=== PATIENT | female | born 1935 | race Caucasian/White ===

== ENCOUNTER 2018-10-16 21:02 | Inpatient (IN) | payer MEDICARE, BC ==
[~2018-10-16] VITALS: Ht 157.5 cm; Wt 78.0 kg
--- NOTE | 2018-10-16 21:32 | NUR ---
[id number] FROM HOME C/O WEAKNESS/DIZZINESS/PALPITATIONS X 1 HOUR. PATIENT STATES JUST FINISHED WEARING 14 DAY HOLTER MONITOR YESTERDAY. DENIES CP. AOX4, AMB, VSS, RR EVEN AND UNLABORED ON RA. SKIN INTACT, NO ACUTE DISTRESS NOTED. READY FOR EVAL.
[2018-10-16] MEDS ORDERED: IV NS 0.9% 500 ML BAG IV ONE (22:00)
--- NOTE | 2018-10-16 22:10 | NUR ---
FRIEND AT BEDSIDE. IV ACCESS ESTABLISHED. IVF INFUSING. WILL CONT TO MONITOR.
[2018-10-16 22:18] LABS: BASOPHILS # (AUTO) 0.1 /CMM (0.0-0.2); BASOPHILS % (AUTO) 0.9 % (0.0-2.0); EOSINOPHILS % (AUTO) 1.8 % (0.0-6.0); HEMATOCRIT 42 % (33-45); HEMOGLOBIN 14.2 g/dL (11.5-14.8); LYMPHOCYTES # (AUTO) 4.3 /CMM (0.8-4.8); LYMPHOCYTES % (AUTO) 47.6 % (20.0-44.0); MEAN CORPUSCULAR HGB CONC 34 g/dl (31.0-36.0); MEAN CORPUSCULAR VOLUME 91 fL (82-100); MONOCYTES # (AUTO) 0.8 /CMM (0.1-1.30); MONOCYTES % (AUTO) 8.4 % (2.0-12.0); NEUTROPHILS # (AUTO) 3.7 /CMM (1.8-8.9); NEUTROPHILS % (AUTO) 41.3 % (43.0-81.0); PLATELET COUNT (AUTO) 209 /CMM (150-450); RED BLOOD CELL COUNT(AUTO) 4.62 MIL/uL (4.0-5.2)
[2018-10-16 22:28] LABS: CALCIUM, SERUM 10.1 mg/dL (8.5-10.1); CARBON DIOXIDE 28 mmol/L (21-32); CHLORIDE 102 mmol/L (98-107); CREATININE 1.1 mg/dL (0.6-1.3); GLUCOSE 160 mg/dL (74-106); POTASSIUM 3.7 mmol/L (3.5-5.1); SODIUM SERUM 139 mmol/L (136-145); UREA NITROGEN, BLOOD 18 mg/dL (7-18)
[2018-10-16 22:35] LABS: ALANINE AMINOTRANSFERASE 36 U/L (12-78); ALBUMIN 3.9 g/dL (3.4-5.0); ALKALINE PHOSPHATASE 114 U/L (46-116); ASPARTATE AMINOTRANSFERASE 26 U/L (15-37); BILIRUBIN,TOTAL 0.3 mg/dL (0.2-1.0); LIPASE 171 U/L (73-393); TOTAL PROTEIN, SERUM 7.5 g/dL (6.4-8.2)
--- NOTE | 2018-10-16 23:05 | NUR ---
PT UP TO USE RESTROOM
[2018-10-17] VITALS (8 sets, daily range): BP systolic 115–147; BP diastolic 53–76
[2018-10-17] MEDS ORDERED: Z GUARD REMEDY 2 OZ OINT TP PRN (01:00)
[2018-10-17] MEDS ORDERED: ACETAMINOPHEN 325 MG TABLET PO PRN (01:00)
[2018-10-17] MEDS ORDERED: MAG HYDROX/AL HYDROX/SIMETH 30 ML UDC PO PRN (01:00)
[2018-10-17] MEDS ORDERED: HYDROCODONE/APAP 5/325MG 1 EACH TABLET PO PRN (01:00)
[2018-10-17] MEDS ORDERED: ONDANSETRON HCL/PF 4 MG/2 ML VIAL IVP PRN (01:00)
[2018-10-17] MEDS ORDERED: MAGNESIUM HYDROXIDE 30 ML UDC PO PRN (01:00)
--- NOTE | 2018-10-17 01:05 | NUR ---
REPORT GIVEN FOR CONTINUATION OF CARE.
--- NOTE | 2018-10-17 01:55 | NUR ---
PT TRANSFERED TO VIA [facility]
--- NOTE | 2018-10-17 02:00 | NUR ---
PT RECEIVED FROM ER VIA FAMILY DAKOTAH AT BEDSIDE, PT AWAKE, ALERT , ORIENTED TIMES 3, DENIES PAIN AT THIS TIME, ON ROOM AIR. NO SOB NOTED, PT DENIES ANY PALPITATIONS AT THIS TIME, SKIN INTACT. PT AMBULATING TO THE BATHROOM.
[2018-10-17 07:21] LABS: BASOPHILS % (AUTO) 0.5 % (0.0-2.0); EOSINOPHILS % (AUTO) 2.2 % (0.0-6.0); HEMATOCRIT 39 % (33-45); HEMOGLOBIN 12.9 g/dL (11.5-14.8); LYMPHOCYTES # (AUTO) 3.9 /CMM (0.8-4.8); LYMPHOCYTES % (AUTO) 52.2 % (20.0-44.0); MEAN CORPUSCULAR HGB CONC 34 g/dl (31.0-36.0); MEAN CORPUSCULAR VOLUME 90 fL (82-100); MONOCYTES # (AUTO) 0.6 /CMM (0.1-1.30); MONOCYTES % (AUTO) 8.5 % (2.0-12.0); NEUTROPHILS # (AUTO) 2.7 /CMM (1.8-8.9); NEUTROPHILS % (AUTO) 36.6 % (43.0-81.0); PLATELET COUNT (AUTO) 183 /CMM (150-450); RED BLOOD CELL COUNT(AUTO) 4.25 MIL/uL (4.0-5.2); WHITE BLOOD COUNT (AUTO) 7.5 K/uL (4.3-11.0)
--- NOTE | 2018-10-17 07:23 | NUR ---
RN OPENING NOTE PT WAS RECEIVED IN BED AT LOWEST AND LOCKED POSITION WITH SIDE RAILS UP 2, A/O X3 BREATHING EVEN AND UNLABORED ON RA, NO CURRENT COMPLAINTS OF ANY PAIN OR DISTRESS NOTED, IV IS PATENT AND INTACT, PT IS AMBULATORY, SAFETY PRECAUTIONS IN PLACE CALL LIGHT WITHIN REACH, WILL MONITOR ACCORDINGLY.
[2018-10-17 07:27] LABS: CALCIUM, SERUM 9.4 mg/dL (8.5-10.1); CARBON DIOXIDE 25 mmol/L (21-32); CHLORIDE 105 mmol/L (98-107); CREATININE 0.8 mg/dL (0.6-1.3); GLUCOSE 175 mg/dL (74-106); MAGNESIUM 2.2 mg/dL (1.8-2.4); POTASSIUM 4.1 mmol/L (3.5-5.1); SODIUM SERUM 141 mmol/L (136-145); UREA NITROGEN, BLOOD 15 mg/dL (7-18)
[2018-10-17 07:39] LABS: CHOLESTEROL 238 mg/dL (<200); HDL CHOLESTEROL 32 mg/dL (40-60); LDL 166 mg/dL (0-99); THYROID STIMULATING HORMONE 7.724 uIU/mL (0.358-3.74); TRIGLYCERIDES 259 mg/dL (30-150)
[2018-10-17] MEDS: HEPARIN SODIUM, PORCINE 5000 UNITS/1 ML VIAL SQ SCH ×2 (08:08→20:22)
[2018-10-17] MEDS ORDERED: OMEG1CAP PO (08:42)
[2018-10-17] MEDS ORDERED: ASCO500T9 PO (08:42)
[2018-10-17] MEDS ORDERED: BIOT10004 PO (08:42)
[2018-10-17] MEDS ORDERED: CETI-102 PO (08:42)
[2018-10-17] MEDS ORDERED: CHOL100044 PO (08:42)
[2018-10-17] MEDS ORDERED: METF500T7 PO (08:42)
[2018-10-17] MEDS ORDERED: SITA100T PO (08:42)
[2018-10-17] MEDS ORDERED: TIMO5DRO18 EACHEYE (08:42)
[2018-10-17] MEDS ORDERED: ALBU8.5H8 INH (08:42)
[2018-10-17] MEDS: LEVOTHYROXINE SODIUM 25 MCG TABLET PO SCH (11:57)
--- NOTE | 2018-10-17 18:31 | NUR ---
RN CLOSING NOTE PT RELAXED IN BED AT LOWEST AND LOCKED POSITION WITH SIDE RAILS UP, A/O X3 WITH BREATHING EVEN AND UNLABORED, NO COMPLAINTS OF ANY PAIN OR DISTRESS AT THIS TIME, IV IS PATENT AND INTACT, SAFETY PRECAUTIONS IN PLACE CALL LIGHT WITHIN REACH, WILL ENDORSE TO ONCOMING NEWS DEPARTMENT INTERN RN FOR [employer].
--- NOTE | 2018-10-17 19:41 | NUR ---
MS/RN OPENING NOTES RECEIVED PATIENT IN BED, AWAKE, ALERT, CALM AND COOPERATIVE TO CARE, ABLE TO VERBALIZE NEEDS, ALERT X4, CALL LIGHTS WITHIN REACH, REPORTED NO PAIN OR PALPITATION, HAD A BM TODAY, RESPIRATIONS EVEN AND UNLABORED, SKIN WARM TO TOUCH, OFFERED AND PROVIDED FLUIDS, BED LOCKED. RECEIVED ENDORSEMENT FROM AM RN FOR [employer]. WILL MONITOR. IV ON LEFT AC GAUGE 20 PATENT.WILL CONTINUE TO MONITOR.
[2018-10-18 06:25] LABS: BASOPHILS % (AUTO) 0.5 % (0.0-2.0); EOSINOPHILS % (AUTO) 2.3 % (0.0-6.0); HEMATOCRIT 40 % (33-45); HEMOGLOBIN 13.3 g/dL (11.5-14.8); LYMPHOCYTES # (AUTO) 4.1 /CMM (0.8-4.8); LYMPHOCYTES % (AUTO) 59.4 % (20.0-44.0); MEAN CORPUSCULAR HGB CONC 34 g/dl (31.0-36.0); MEAN CORPUSCULAR VOLUME 90 fL (82-100); MONOCYTES # (AUTO) 0.5 /CMM (0.1-1.30); MONOCYTES % (AUTO) 7.5 % (2.0-12.0); NEUTROPHILS # (AUTO) 2.1 /CMM (1.8-8.9); NEUTROPHILS % (AUTO) 30.3 % (43.0-81.0); PLATELET COUNT (AUTO) 189 /CMM (150-450); RED BLOOD CELL COUNT(AUTO) 4.37 MIL/uL (4.0-5.2); WHITE BLOOD COUNT (AUTO) 6.9 K/uL (4.3-11.0)
--- NOTE | 2018-10-18 06:44 | NUR ---
326-1 ms/rn notes patietn in bed, able TO MAKE NEEDS KNOWN. MONITORED FOR ANY CHANGES, DENIES PAIN, RESPIRATIONS EVEN AND UNLABORED, BED LOCKED, CALL LIGHTS WITHIN REACH, WILL MONITOR AND ENDORSE TO AM RN FOR [employer].
[2018-10-18 06:54] LABS: CALCIUM, SERUM 9.5 mg/dL (8.5-10.1); CARBON DIOXIDE 23 mmol/L (21-32); CHLORIDE 104 mmol/L (98-107); CREATININE 0.9 mg/dL (0.6-1.3); GLUCOSE 159 mg/dL (74-106); POTASSIUM 4.3 mmol/L (3.5-5.1); SODIUM SERUM 141 mmol/L (136-145); UREA NITROGEN, BLOOD 19 mg/dL (7-18)
[2018-10-18 08:00] VITALS: BP 124/60
--- NOTE | 2018-10-18 08:00 | NUR ---
RN NOTES RECEIVED PATIENT IN THE BED, A/O X4. PATIENT STABLE, NO ACUTE RESPIRATORY DISTRESS, V/S STABLE, ENCOURAGED TO EXPRESS FEELINGS AND CONCERNS, PATIENT AMBULATOR SELF CARE. SCHEDULED MEDICATION ADMINISTERED. PATIENT WAS REFUSING PAIN AT THIS TIME. CALL LIGHT WITHIN TO REACH, SAFETY PRECAUTION MAINTAINED ALL THE TIME.
[2018-10-18] MEDS: HEPARIN SODIUM, PORCINE 5000 UNITS/1 ML VIAL SQ SCH (09:00)
--- NOTE | 2018-10-18 09:30 | NUR ---
RN NOTES PATIENT GOING TO D/C HOME PER Dr PRICE'S ORDER. PATIENT WILL FOLLOW PRIMARY MD.
[2018-10-18] MEDS: LEVOTHYROXINE SODIUM 25 MCG TABLET PO SCH (10:27)
--- NOTE | 2018-10-18 11:55 | NUR ---
PRIMER CHARGER NOTES PATIENT DISCHARGE AT THIS TIME GOING HOME. PATIENT STABLE, MED COMPLIANT, V/S STABLE, REFUSED PAIN AT THIS TIME. MED RECONCILIATION AND DISCHARGE ORDER REVIEWED AND EXPLAINED TO PATIENT. PATIENT VERBALIZED UNDERSTANDING. BELONGING WITH THE PATIENT, REMOVED IV ACCESS, PATIENT SIGN PAPERWORK. PATIENT WILL FOLLOW PRIMARY MD, AND CONTINUED HOME MEDICATION. PATIENT ESCORTED TO THE LOBBY FOR SAFETY. PATIENT PROM BURN OFF OPERATOR BY NEPHEW NAME TIFFANIE PHONE #[phone].
== END 2018-10-18 11:36 | disposition home or self-care (01) | DRG 310 ==
LOC: ER 21:04 → TELE 10-17 01:03 → MED 10-17 08:17
PROVIDERS: ADMIT Nurse Practitioner Acute Care; ATTEND Nurse Practitioner Acute Care
DX: I49.9 Cardiac arrhythmia, unspecified (principal); I10 Essential (primary) hypertension; E78.5 Hyperlipidemia, unspecified; E11.9 Type 2 diabetes mellitus without complications; E03.9 Hypothyroidism, unspecified; Z90.710 Acquired absence of both cervix and uterus; Z79.84 Long term (current) use of oral hypoglycemic drugs
CPT/HCPCS: 36415; 71045-TC; 80048-TC; 80061-TC; 80076-TC; 83690-TC; 83735-TC; 84100-TC; 84439-TC; 84443-TC; 84484-TC; 85025-TC; 87081-TC; 93307-TC; G0378; J1644; J7040